=== PATIENT | female | born 1995 | race Two or more races ===

== ENCOUNTER 2021-09-14 20:28 | Inpatient (IN) | payer OTHER ==
[~2021-09-14] VITALS: Ht 170.2 cm; Wt 197.3 kg
[2021-09-14 21:26] LABS: BASOPHILS % (AUTO) 0.4 % (0.0-2.0); EOSINOPHILS % (AUTO) 1.1 % (1.0-6.0); HEMATOCRIT 41.1 % (36-46); HEMOGLOBIN 13.4 g/dL (12.0-16.0); LYMPHOCYTES # (AUTO) 1.9 K/uL (1.0-4.8); LYMPHOCYTES % (AUTO) 19.3 % (22.0-44.0); MEAN CORPUSCULAR HEMOGLOBIN 29.5 pg (26.0-34.0); MEAN CORPUSCULAR HGB CONC 32.7 G/dL (31.0-37.0); MEAN CORPUSCULAR VOLUME 90 fL (80-100); MONOCYTES # (AUTO) 0.6 K/uL (0.1-1.0); MONOCYTES % (AUTO) 6.5 % (2.0-9.0); NEUTROPHILS # (AUTO) 7.2 K/uL (1.8-7.7); NEUTROPHILS % (AUTO) 72.7 % (40.0-70.0); PLATELET COUNT (AUTO) 443 K/uL (150-450); RED BLOOD CELL COUNT(AUTO) 4.55 MIL/uL (4.00-5.20); RED CELL DISTRIBUTION WIDTH 12.6 % (11.5-14.5)
[2021-09-14 21:44] LABS: ANION GAP 7 mmol/L (8-16); CALCIUM, TOTAL 9.5 mg/dL (8.8-10.5); CARBON DIOXIDE 31 mmol/L (22-29); CHLORIDE 105 mmol/L (98-107); CREATININE 0.91 mg/dL (0.60-1.30); GLOMERULAR FILTR. RATE CALC > 60 mL/min (>60); GLUCOSE,RANDOM 92 mg/dL (70-110); POTASSIUM 4.6 mmol/L (3.5-5.1); SODIUM SERUM 143 mmol/L (136-145); UREA NITROGEN, BLOOD 14 mg/dL (7-18)
[2021-09-14 21:46] LABS: COVID AG,FIA SOURCE NASOPHARYNGEAL
[2021-09-14 21:49] LABS: ALANINE AMINOTRANSFERASE 19 U/L (12-78); ALBUMIN 3.6 g/dL (3.4-5.0); ALKALINE PHOSPHATASE 102 U/L (46-116); ASPARTATE AMINOTRANSFERASE 24 U/L (15-37); BILIRUBIN,TOTAL 0.3 mg/dL (0.1-1.0); TOTAL PROTEIN, SERUM 7.9 g/dL (6.4-8.2)
[2021-09-14] MEDS ORDERED: ACETAMINOPHEN 325 MG TABLET PO PRN ×2 (22:15)
[2021-09-14] MEDS ORDERED: ONDANSETRON HCL 4 MG/2 ML VIAL IVP PRN (22:15)
[2021-09-14] MEDS ORDERED: LORazepam 0.5 MG TABLET PO PRN (22:15)
[2021-09-14] MEDS ORDERED: LORazepam 2 MG TABLET PO PRN (22:45)
[2021-09-14 22:55] VITALS: BP 105/65
[2021-09-14] MEDS: VITAMIN B COMP/VIT C/FOLIC ACID CAPSULE PO SCH (23:11)
[2021-09-14] MEDS: THIAMINE 100 MG/ML 2 ML VIAL IVP SCH (23:12)
[2021-09-14 23:49] VITALS: BP 105/65
[2021-09-15 04:59] VITALS: BP 103/60
[2021-09-15] MEDS ORDERED: LORazepam 2 MG TABLET PO PRN (07:00)
[2021-09-15 07:13] VITALS: BP 112/81
[2021-09-15] MEDS ORDERED: LORazepam 2 MG TABLET PO SCH (09:00)
[2021-09-15] MEDS ORDERED: ENOXAPARIN SODIUM 40 MG/0.4 ML PF SYRINGE SQ SCH (09:00)
[2021-09-15] MEDS: THIAMINE 100 MG/ML 2 ML VIAL IVP SCH (09:24)
[2021-09-15] MEDS: ONDANSETRON HCL 4 MG/2 ML VIAL IVP PRN (09:24)
[2021-09-15] MEDS: VITAMIN B COMP/VIT C/FOLIC ACID CAPSULE PO SCH (09:25)
[2021-09-15 12:25] VITALS: BP 98/58
[2021-09-15 15:55] VITALS: BP 114/62
[2021-09-15 19:50] VITALS: BP 113/58
[2021-09-15 20:29] VITALS: BP 113/58
[2021-09-16 00:05] VITALS: BP 108/61
[2021-09-16 00:40] LABS: APPEARANCE,URINE CLOUDY (CLEAR); BILIRUBIN,URINE NEGATIVE (NEGATIVE); GLUCOSE, URINE (UA) NEGATIVE (NEGATIVE); KETONES,URINE NEGATIVE (NEGATIVE); LEUKOCYTE ESTERASE ,URINE NEGATIVE (NEGATIVE); NITRATE,URINE POSITIVE (NEGATIVE); OCCULT BLOOD,URINE MODERATE (NEGATIVE); PROTEIN,URINE NEGATIVE (NEGATIVE)
[2021-09-16 00:57] LABS: AMORPHOUS SEDIMENT,UR None Seen /LPF (None Seen); BACTERIA,URINE Few /HPF (None Seen); CALCIUM OXALATE CRYSTALS,UR None Seen /LPF (None Seen); CALCIUM PHOSPHATE CRYSTALS,UR None Seen /LPF (None Seen); COARSE GRANULAR CASTS,URINE None Seen /LPF (None Seen); FINE GRANULAR CASTS,URINE None Seen /LPF (None Seen); HYALINE CASTS, URINE None Seen /LPF (None Seen); MUCUS,URINE None Seen LPF (None Seen); OTHER CASTS, URINE None Seen /LPF (None Seen); OTHER CRYSTALS,URINE None Seen /LPF (None Seen); RENAL EPITHELIAL CELLS,URINE None Seen /LPF (None Seen); SQUAMOUS EPITHELIAL CELL,UR Few /LPF (None Seen); TRANSITIONAL EPI CELLS,URINE None Seen /LPF (None Seen); TRIPLE PHOSPHATE CRYSTAL,UR None Seen /LPF (None Seen); URIC ACID CRYSTALS,URINE None Seen /LPF (None Seen); WBC,URINE 0-2 /HPF (0-5); YEAST,URINE None Seen /HPF (None Seen)
[2021-09-16] MEDS: LORazepam 1 MG TABLET PO PRN ×3 (02:15→17:59)
[2021-09-16 05:00] VITALS: BP 115/66
[2021-09-16 08:10] VITALS: BP 107/76
[2021-09-16] MEDS: VITAMIN B COMP/VIT C/FOLIC ACID CAPSULE PO SCH (08:28)
[2021-09-16] MEDS: THIAMINE 100 MG/ML 2 ML VIAL IVP SCH (08:29)
[2021-09-16] MEDS: NICOTINE 21 MG/24 HOUR PATCH TD SCH (10:54)
[2021-09-16 11:25] VITALS: BP 119/70
[2021-09-16 15:26] VITALS: BP 126/68
[2021-09-16 20:00] VITALS: BP 114/72
[2021-09-16] MEDS ORDERED: MELATONIN 3 MG TABLET PO PRN (20:30)
[2021-09-16] MEDS ORDERED: DiphenhydrAMINE HCL 25 MG CAPSULE PO ONE (22:45)
[2021-09-16] MEDS ORDERED: TraZODone HCL 50 MG TABLET PO ONE (22:45)
[2021-09-17] MEDS: LORazepam 1 MG TABLET PO PRN (01:47)
[2021-09-17 04:00] VITALS: BP 109/66
[2021-09-17] MEDS ORDERED: LORazepam 1 MG TABLET PO PRN ×2 (06:45→07:00)
[2021-09-17] MEDS: ONDANSETRON HCL 4 MG/2 ML VIAL IVP PRN (06:52)
[2021-09-17 08:08] VITALS: BP 103/56
[2021-09-17] MEDS: NICOTINE 21 MG/24 HOUR PATCH TD SCH (08:34)
[2021-09-17] MEDS: THIAMINE 100 MG/ML 2 ML VIAL IVP SCH (08:34)
[2021-09-17] MEDS: VITAMIN B COMP/VIT C/FOLIC ACID CAPSULE PO SCH (08:34)
[2021-09-17] MEDS ORDERED: LORazepam 1 MG TABLET PO SCH (09:00)
[2021-09-17 20:11] VITALS: BP 122/70
[2021-09-17] MEDS ORDERED: TraZODone HCL 100 MG TABLET PO PRN (20:30)
[2021-09-17] MEDS ORDERED: DiphenhydrAMINE HCL 25 MG CAPSULE PO PRN (22:15)
[2021-09-18] MEDS ORDERED: LORazepam 1 MG TABLET PO PRN (07:00)
[2021-09-18] MEDS ORDERED: NICO-803 TD (07:36)
[2021-09-18] MEDS ORDERED: ACET-2247 PO (07:37)
[2021-09-18] MEDS ORDERED: MELA3TAB89 PO (07:38)
[2021-09-18 08:05] VITALS: BP 139/61
[2021-09-18] MEDS: NICOTINE 21 MG/24 HOUR PATCH TD SCH (08:37)
[2021-09-18] MEDS ORDERED: THIAMINE 100 MG TABLET PO SCH (09:00)
== END 2021-09-18 10:20 | DRG 897 ==
LOC: EMS 20:32 → 5S 22:06 → 6S 09-15 13:58
PROVIDERS: ADMIT Internal Medicine; ATTEND Internal Medicine
DX: F11.13 Opioid abuse with withdrawal (principal); E87.3 Alkalosis; F10.139 Alcohol abuse with withdrawal, unspecified; F17.200 Nicotine dependence, unspecified, uncomplicated; Y90.9 Presence of alcohol in blood, level not specified; F19.10 Other psychoactive substance abuse, uncomplicated; Z91.19 Patient's noncompliance with other medical treatment and regimen; Z20.822 Contact with and (suspected) exposure to COVID-19
CPT/HCPCS: 80053; 81001; 85025; 99285; G0480; J1650; J2405; J3411

== ENCOUNTER 2024-10-11 07:34 | Inpatient (IN) | payer OTHER ==
[~2024-10-11] VITALS: Ht 172.7 cm; Wt 77.3 kg
[~2024-10-11 07:34] MED LIST: ACET-2247 PO; MELA3TAB89 PO; NICO-803 TD
[2024-10-11 08:23] LABS: BASOPHILS % (AUTO) 0.3 % (0.0-2.0); EOSINOPHILS % (AUTO) 1.7 % (1.0-6.0); HEMATOCRIT 32.5 % (36-46); HEMOGLOBIN 11.4 g/dL (12.0-16.0); LYMPHOCYTES # (AUTO) 1.7 K/uL (1.0-4.8); LYMPHOCYTES % (AUTO) 28.6 % (22.0-44.0); MEAN CORPUSCULAR HEMOGLOBIN 31.5 pg (26.0-34.0); MEAN CORPUSCULAR HGB CONC 34.9 G/dL (31.0-37.0); MEAN CORPUSCULAR VOLUME 90 fL (80-100); MONOCYTES # (AUTO) 0.4 K/uL (0.1-1.0); MONOCYTES % (AUTO) 6.9 % (2.0-9.0); NEUTROPHILS # (AUTO) 3.6 K/uL (1.8-7.7); NEUTROPHILS % (AUTO) 62.5 % (40.0-70.0); PLATELET COUNT (AUTO) 313 K/uL (150-450); RED BLOOD CELL COUNT(AUTO) 3.61 MIL/uL (4.00-5.20); RED CELL DISTRIBUTION WIDTH 12.5 % (11.5-14.5); WHITE BLOOD COUNT (AUTO) 5.8 K/uL (4.5-11.0)
[2024-10-11 08:34] LABS: ANION GAP 8 mmol/L (8-16); CALCIUM, TOTAL 8.3 mg/dL (8.8-10.5); CARBON DIOXIDE 24 mmol/L (22-29); CHLORIDE 103 mmol/L (98-107); CREATININE 0.61 mg/dL (0.60-1.30); GLOMERULAR FILTR. RATE CALC > 60 mL/min (>60); GLUCOSE,RANDOM 96 mg/dL (70-110); POTASSIUM 3.7 mmol/L (3.5-5.1); SODIUM SERUM 135 mmol/L (136-145); UREA NITROGEN, BLOOD 12 mg/dL (7-18)
[2024-10-11 09:08] LABS: HCG,QUANTITATIVE 66969 mIU/mL (0-6)
[2024-10-11 09:22] LABS: ALCOHOL, BLOOD (SERUM) < 3 mg/dL (0-10)
[2024-10-11] MEDS: SODIUM CHLORIDE 0.9% 1,000 ML IV ONE (13:36)
[2024-10-11 15:00] VITALS: BP 121/64; PULSE 81; RESP 18; TEMP 98.3; O2SAT 98
[2024-10-11 15:26] VITALS: BP 114/64; PULSE 81; RESP 18; TEMP 98.3; O2SAT 98
[2024-10-11 15:40] VITALS: BP 114/64; PULSE 81; RESP 18; TEMP 98.3; O2SAT 98
[2024-10-11] MEDS: DOCUSATE SODIUM 100 MG CAPSULE PO SCH (20:35)
[2024-10-11 20:59] VITALS: BP 108/45; PULSE 80; RESP 18; TEMP 98.2; O2SAT 98
[2024-10-11 23:46] VITALS: BP 97/81; PULSE 99; RESP 18; TEMP 98.1; O2SAT 99
[2024-10-12 04:39] VITALS: BP 117/71; PULSE 74; RESP 18; TEMP 98; O2SAT 99
[2024-10-12 08:00] VITALS: BP 107/65; PULSE 74; RESP 16; TEMP 98.7; O2SAT 97
[2024-10-12] MEDS: PRENATAL NO.137/IRON/FOLIC ACID TABLET PO SCH (09:00)
[2024-10-12] MEDS: ACETAMINOPHEN 325 MG TABLET PO PRN (11:39)
[2024-10-12] MEDS: METOCLOPRAMIDE HCL 5 MG TABLET PO PRN (11:39)
[2024-10-12 12:00] VITALS: BP 99/55; PULSE 96; RESP 16; TEMP 98.2; O2SAT 100
[2024-10-12 14:09] LABS: APPEARANCE,URINE HAZY (CLEAR); BILIRUBIN,URINE NEGATIVE (NEGATIVE); COLOR,URINE LIGHT YELLOW (YELLOW); GLUCOSE, URINE (UA) NEGATIVE (NEGATIVE); KETONES,URINE NEGATIVE (NEGATIVE); LEUKOCYTE ESTERASE ,URINE NEGATIVE (NEGATIVE); NITRATE,URINE NEGATIVE (NEGATIVE); OCCULT BLOOD,URINE NEGATIVE (NEGATIVE); PH,URINE 6.5 (5.0-8.0); PH,URINE DRUG SCREEN 6.5 (5.0-8.0); PROTEIN,URINE NEGATIVE (NEGATIVE); SPECIFIC GRAVITIY, URINE 1.008 (1.003-1.030); UROBILINOGEN,URINE <=1.0 mg/dL (<=1.0)
[2024-10-12 14:18] LABS: AMPHET/METH SCREEN,URINE POSITIVE (NEGATIVE); BARBITURATE SCREEN, URINE NEGATIVE (NEGATIVE); BENZODIAZEPINES SCREEN,URINE NEGATIVE (NEGATIVE); CANNABINOID SCREEN,URINE POSITIVE (NEGATIVE); COCAINE SCREEN,URINE NEGATIVE (NEGATIVE); METHADONE SCREEN, URINE NEGATIVE (NEGATIVE); OPIATE SCREEN,URINE NEGATIVE (NEGATIVE); PHENCYCLIDINE SCREEN,URINE NEGATIVE (NEGATIVE)
[2024-10-12 14:20] LABS: ALCOHOL, URINE DRUG SCREEN NEGATIVE (NEGATIVE)
[2024-10-12 16:00] VITALS: BP 99/55; PULSE 96; RESP 18; TEMP 98.3; O2SAT 100
[2024-10-12] MEDS: SODIUM CHLORIDE 0.9% 1,000 ML IV ONE (17:30)
[2024-10-12 20:00] VITALS: BP 104/56; PULSE 63; RESP 16; TEMP 97.7; O2SAT 100
[2024-10-13] VITALS: BP 124/74; PULSE 85; RESP 17; TEMP 98.3; O2SAT 98
[2024-10-13 04:00] VITALS: BP 123/64; PULSE 83; RESP 18; TEMP 97.7; O2SAT 100
[2024-10-13] MEDS: METOCLOPRAMIDE HCL 5 MG/ML 2 ML VIAL IVP PRN (06:10)
[2024-10-13] MEDS: SODIUM CHLORIDE 0.9% 1,000 ML IV SCH (06:12)
[2024-10-13 08:00] VITALS: BP 125/60; PULSE 82; RESP 18; TEMP 98.2; O2SAT 100
[2024-10-13 23:25] VITALS: BP 119/78; PULSE 73; RESP 19; TEMP 98.1; O2SAT 100
[2024-10-14 06:27] VITALS: BP 107/66; PULSE 66; RESP 18; TEMP 98; O2SAT 98
[2024-10-14] MEDS ORDERED: SODIUM CHLORIDE 0.9% 1,000 ML IV ONE (08:45)
== END 2024-10-14 11:30 | disposition left against medical advice (07) | DRG 831 ==
LOC: EMS 07:36 → EDH 12:08 → UNDOADMIN 12:28 → EDH 12:28 → 5S 15:15
PROVIDERS: ADMIT Internal Medicine; ATTEND Internal Medicine
DX: O9A.211 Injury, poisoning and certain other consequences of external causes complicating pregnancy, first trimester (principal); G92.9 Unspecified toxic encephalopathy; F33.1 Major depressive disorder, recurrent, moderate; F11.23 Opioid dependence with withdrawal; F15.23 Other stimulant dependence with withdrawal; Z3A.09 9 weeks gestation of pregnancy; T40.411A Poisoning by fentanyl or fentanyl analogs, accidental (unintentional), initial encounter; O99.321 Drug use complicating pregnancy, first trimester; O26.891 Other specified pregnancy related conditions, first trimester; Z53.29 Procedure and treatment not carried out because of patient's decision for other reasons; Z87.891 Personal history of nicotine dependence; Z91.199 Patient's noncompliance with other medical treatment and regimen due to unspecified reason
CPT/HCPCS: 76700; 76801; 80048; 80307; 81003; 84702; 85025; 93005; 99285; G0480; J2765; J7030